=== PATIENT | female | born 2000 | race African-American/Black ===

== ENCOUNTER 2022-03-24 09:52 | Inpatient (IN) | payer BC, OTHER ==
[~2022-03-24] VITALS: Ht 157.5 cm; Wt 63.6 kg
[2022-03-24] MEDS ORDERED: oxyCODONE 5MG TAB PO PRN (12:20)
[2022-03-24] MEDS ORDERED: VENLAFAXINE **XR** 75MG CAPSULE PO ONE (12:20)
[2022-03-24] MEDS ORDERED: MORPHINE 30 MG SA TAB PO ONE (12:30)
[2022-03-24] MEDS ORDERED: LORazepam 2 MG TAB PO ONE (15:15)
[2022-03-24] MEDS ORDERED: VENL150C43 PO (15:25)
[2022-03-24] MEDS ORDERED: FOLI1TAB11 PO (15:25)
[2022-03-24] MEDS ORDERED: NAPR-855 PO (15:25)
[2022-03-24] MEDS ORDERED: OXYC-517 PO (15:25)
[2022-03-24] MEDS ORDERED: TRET0.02 TOP (15:25)
[2022-03-24] MEDS ORDERED: SING10TA32 PO (15:25)
[2022-03-24] MEDS ORDERED: MORP30TASA PO (15:25)
[2022-03-24] MEDS ORDERED: HYDR500C3 PO (15:25)
[2022-03-24] MEDS ORDERED: ERGO500029 PO (15:25)
[2022-03-24] MEDS ORDERED: OLANZapine INTRAMUSCULAR 10MG VIAL IM ONE (15:35)
[2022-03-24] MEDS ORDERED: CETI-24 PO (15:48)
[2022-03-24] MEDS ORDERED: LEVOTAB10 PO (15:48)
[2022-03-24] MEDS ORDERED: HOME MED LIST COMPLETE! XX SCH (15:50)
[2022-03-24] MEDS ORDERED: MAALOX 30 ML SUSP *UDC PO PRN (18:35)
[2022-03-24] MEDS ORDERED: MOM 30ML SUSPENSION UDC PO PRN (18:35)
[2022-03-24] MEDS: OLANZapine 10 MG TAB PO SCH (20:49)
[2022-03-24 21:20] VITALS: BP 92/56
[2022-03-25] MEDS: ACETAMINOPHEN TAB 650MG DOSE (2X325MG) PO PRN ×2 (05:39→18:55)
[2022-03-25] MEDS: risperiDONE 0.5 MG TAB PO PRN ×2 (05:39→22:11)
[2022-03-25 07:13] VITALS: BP 118/70
[2022-03-25] MEDS: NICOTINE 21MG/24HR 1 EA TRANSDERMAL TD SCH (10:39)
[2022-03-25] MEDS: MONTELUKAST 10 MG TAB PO SCH (14:33)
[2022-03-25] MEDS: FOLIC ACID 1 MG TAB PO SCH (14:34)
[2022-03-25] MEDS: HYDROXYUREA 500 MG CAP PO SCH (15:36)
[2022-03-25] MEDS: oxyCODONE 5MG TAB PO PRN ×2 (15:38→22:12)
[2022-03-25] MEDS: CETIRIZINE (ZyrTEC) 10 MG TAB PO SCH (20:05)
[2022-03-25] MEDS: traZODone 50 MG TAB PO PRN (20:05)
[2022-03-25] MEDS: OLANZapine 10 MG TAB PO SCH (20:05)
[2022-03-25] MEDS: MORPHINE 30 MG SA TAB PO SCH (20:06)
[2022-03-25] MEDS ORDERED: INFLUENZA QUADRIVALENT PF VACCINE 0.5ML SYRINGE IM.IMMUN ONE (21:00)
[2022-03-26] MEDS: HYDROXYUREA 500 MG CAP PO SCH (08:43)
[2022-03-26] MEDS: MORPHINE 30 MG SA TAB PO SCH ×2 (08:45→20:41)
[2022-03-26] MEDS: MONTELUKAST 10 MG TAB PO SCH (08:46)
[2022-03-26] MEDS: NICOTINE 21MG/24HR 1 EA TRANSDERMAL TD SCH (08:46)
[2022-03-26] MEDS: FOLIC ACID 1 MG TAB PO SCH (08:46)
[2022-03-26] MEDS: DIVALPROEX 500 MG TAB PO SCH ×2 (12:31→20:39)
[2022-03-26 16:22] VITALS: BP 134/73
[2022-03-26] MEDS: traZODone 50 MG TAB PO PRN (20:38)
[2022-03-26] MEDS: CETIRIZINE (ZyrTEC) 10 MG TAB PO SCH (20:38)
[2022-03-26] MEDS: OLANZapine 10 MG TAB PO SCH (20:39)
[2022-03-26] MEDS ORDERED: DIVALPROEX 125 MG TAB PO ONE (21:00)
[2022-03-27] MEDS: oxyCODONE 5MG TAB PO PRN (02:30)
[2022-03-27 06:35] VITALS: BP 117/74
[2022-03-27] MEDS: NICOTINE 21MG/24HR 1 EA TRANSDERMAL TD SCH (07:32)
[2022-03-27] MEDS: HYDROXYUREA 500 MG CAP PO SCH (07:33)
[2022-03-27] MEDS: FOLIC ACID 1 MG TAB PO SCH (07:34)
[2022-03-27] MEDS: MORPHINE 30 MG SA TAB PO SCH ×2 (07:34→20:50)
[2022-03-27] MEDS: DIVALPROEX 500MG *ER* TAB PO SCH ×2 (07:34→20:50)
[2022-03-27] MEDS: MONTELUKAST 10 MG TAB PO SCH (07:35)
[2022-03-27] MEDS ORDERED: DIVALPROEX 250 MG TAB PO SCH (09:00)
[2022-03-27] MEDS: ONDANSETRON 4MG TAB PO PRN (12:17)
[2022-03-27 16:32] VITALS: BP 110/76
[2022-03-27] MEDS: OLANZapine 10 MG TAB PO SCH (20:49)
[2022-03-27] MEDS: CETIRIZINE (ZyrTEC) 10 MG TAB PO SCH (20:49)
[2022-03-27] MEDS: traZODone 50 MG TAB PO PRN (20:50)
[2022-03-28] MEDS: oxyCODONE 5MG TAB PO PRN (03:54)
[2022-03-28 06:47] VITALS: BP 115/78
[2022-03-28] MEDS: HYDROXYUREA 500 MG CAP PO SCH (08:19)
[2022-03-28] MEDS: DIVALPROEX 500MG *ER* TAB PO SCH (08:19)
[2022-03-28] MEDS: MONTELUKAST 10 MG TAB PO SCH (08:19)
[2022-03-28] MEDS: MORPHINE 30 MG SA TAB PO SCH (08:21)
[2022-03-28] MEDS: FOLIC ACID 1 MG TAB PO SCH (08:22)
[2022-03-28] MEDS: NICOTINE 21MG/24HR 1 EA TRANSDERMAL TD SCH (08:22)
[2022-03-28] MEDS ORDERED: RISP-7 PO (09:23)
[2022-03-28] MEDS ORDERED: DEPA500T2 PO (09:23)
[2022-03-28] MEDS: ONDANSETRON 4MG TAB PO PRN (12:38)
== END 2022-03-28 13:08 | disposition home or self-care (01) | DRG 753 ==
LOC: M ED 09:52 → M ED INP 18:34 → M PSY 21:15
PROVIDERS: ADMIT Psychiatry & Neurology Psychiatry; ATTEND Psychiatry & Neurology Psychiatry
DX: F31.2 Bipolar disorder, current episode manic severe with psychotic features (principal); Z91.14 Patient's other noncompliance with medication regimen; Z91.52 Personal history of nonsuicidal self-harm; Z79.899 Other long term (current) drug therapy; Z88.8 Allergy status to other drugs, medicaments and biological substances; Z79.891 Long term (current) use of opiate analgesic; Z90.49 Acquired absence of other specified parts of digestive tract; D57.1 Sickle-cell disease without crisis